=== PATIENT | female | born 1975 | race Caucasian/White ===

== ENCOUNTER → 2018-01-25 | Outpatient (CLI) | payer OTHER ==
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
== END ==
LOC: RADMRIMAIN 20:10 → MERGE 20:45
PROVIDERS: ATTEND Neurological Surgery
DX: M51.24 Other intervertebral disc displacement, thoracic region (principal); M46.96 Unspecified inflammatory spondylopathy, lumbar region
CPT/HCPCS: 72141; 72146; 72148